=== PATIENT | male | born 1985 | race Caucasian/White ===

== ENCOUNTER 2022-05-03 12:54 | Emergency (ER) | payer SELFPAY ==
[~2022-05-03] VITALS: Ht 167.6 cm; Wt 81.8 kg
[2022-05-03] MEDS ORDERED: FLUO10CA24 PO (13:03)
[2022-05-03 13:29] LABS: BASOPHILS % (AUTO) 0.5 % (0.0-2.0); EOSINOPHILS % (AUTO) 1.4 % (1.0-6.0); HEMOGLOBIN 14.1 g/dL (13.5-17.5); LYMPHOCYTES # (AUTO) 1.3 K/uL (1.0-4.8); MEAN CORPUSCULAR HEMOGLOBIN 28.4 pg (26.0-34.0); MEAN CORPUSCULAR HGB CONC 33.6 G/dL (31.0-37.0); MEAN CORPUSCULAR VOLUME 85 fL (80-100); MONOCYTES # (AUTO) 0.8 K/uL (0.1-1.0); MONOCYTES % (AUTO) 10.6 % (2.0-9.0); NEUTROPHILS # (AUTO) 5.4 K/uL (1.8-7.7); NEUTROPHILS % (AUTO) 70.5 % (40.0-70.0); PLATELET COUNT (AUTO) 233 K/uL (150-450); RED BLOOD CELL COUNT(AUTO) 4.97 MIL/uL (4.50-5.90); RED CELL DISTRIBUTION WIDTH 13.7 % (11.5-14.5)
[2022-05-03] MEDS: SODIUM CHLORIDE 0.9% 1,000 ML IV ONE ×2 (13:29→14:34)
[2022-05-03] MEDS: ONDANSETRON HCL 4 MG/2 ML VIAL IVP ONE (13:30)
[2022-05-03 13:40] LABS: COVID AG,FIA SOURCE NASAL SWAB
[2022-05-03 13:40] LABS: CALCIUM, TOTAL 8.9 mg/dL (8.8-10.5); CREATININE 1.63 mg/dL (0.60-1.30); POTASSIUM 3.3 mmol/L (3.5-5.1)
[2022-05-03 13:46] LABS: ALBUMIN 4.1 g/dL (3.4-5.0); BILIRUBIN,TOTAL 1.1 mg/dL (0.1-1.0)
[2022-05-03 14:02] LABS: INFLUENZA TYPE A NEGATIVE FOR TYPE A (NEGATIVE); INFLUENZA TYPE B NEGATIVE FOR TYPE B (NEGATIVE)
[2022-05-03] MEDS: PB/HYOSCY/ATR/SCOP/LIDO/MAALOX 55 ML BOTTLE PO ONE (14:21)
[2022-05-03] MEDS ORDERED: IOHEXOL 300 MG/ML 100 ML VIAL ONE (14:33)
[2022-05-03] MEDS ORDERED: SODIUM CHLORIDE 0.9% 100 ML ONE (14:33)
[2022-05-03 14:34] LABS: APPEARANCE,URINE HAZY (CLEAR); GLUCOSE, URINE (UA) TRACE mg/dL (NEGATIVE); KETONES,URINE 80-100 mg/dL (NEGATIVE); LEUKOCYTE ESTERASE ,URINE NEGATIVE (NEGATIVE); NITRATE,URINE NEGATIVE (NEGATIVE); OCCULT BLOOD,URINE TRACE (NEGATIVE); PROTEIN,URINE >600,SEE CONFIRM mg/dL (NEGATIVE); SPECIFIC GRAVITIY, URINE 1.039 (1.003-1.030)
[2022-05-03] MEDS: ACETAMINOPHEN 500 MG TABLET PO ONE (14:34)
[2022-05-03] MEDS: KETOROLAC TROMETHAMINE 30 MG/ML VIAL IVP ONE (14:34)
[2022-05-03 14:41] LABS: BILIRUBIN,URINE MODERATE (NEGATIVE)
[2022-05-03 14:43] LABS: RBC,URINE 0-2 /HPF (0-2); SULFOSALICYLIC ACID,URINE 3+ (Negative)
[2022-05-03 14:44] LABS: BACTERIA,URINE Moderate /HPF (None Seen); FINE GRANULAR CASTS,URINE 0-2 /LPF (None Seen); HYALINE CASTS, URINE 0-2 /LPF (None Seen); WBC,URINE 0-2 /HPF (0-5)
[2022-05-03 15:12] VITALS: BP 139/77
[2022-05-03] MEDS ORDERED: ONDA-104 PO (15:35)
== END 2022-05-03 15:55 | disposition home or self-care (01) ==
LOC: EMS 12:58
DX: R10.9 Unspecified abdominal pain (principal); F17.210 Nicotine dependence, cigarettes, uncomplicated; Z88.0 Allergy status to penicillin; Z20.822 Contact with and (suspected) exposure to COVID-19
CPT/HCPCS: 99285; 74177; 96374; 76700; 96361; 96375; 87426; 80053; 81001; 83690; 85025; 87804; 36415; 87086; J1885; J2405; J7030; J7050; Q9967; 81002

== ENCOUNTER 2023-05-29 10:12 | Emergency (ER) | payer OTHER ==
[~2023-05-29] VITALS: Ht 167.6 cm; Wt 95.5 kg
[~2023-05-29 10:12] MED LIST: FLUO10CA24 PO; ONDA-104 PO
[2023-05-29 10:14] VITALS: BP 134/81; PULSE 84; RESP 16; TEMP 98
[2023-05-29] MEDS ORDERED: FLUO20CA36 PO (10:29)
[2023-05-29] MEDS ORDERED: IBUP-1554 PO (10:29)
[2023-05-29] MEDS ORDERED: ACET-66 PO (10:29)
[2023-05-29] MEDS ORDERED: ACETAMINOPHEN 500 MG TABLET PO ONE (10:30)
== END 2023-05-29 10:38 | disposition home or self-care (01) ==
LOC: EMS 10:15
DX: S29.012A Strain of muscle and tendon of back wall of thorax, initial encounter (principal); F32.A Depression, unspecified; F17.210 Nicotine dependence, cigarettes, uncomplicated; Z88.0 Allergy status to penicillin; X58.XXXA Exposure to other specified factors, initial encounter; Y93.89 Activity, other specified; Y92.89 Other specified places as the place of occurrence of the external cause; Y99.8 Other external cause status
CPT/HCPCS: 99283

== ENCOUNTER 2023-10-31 12:06 | Emergency (ER) | payer OTHER ==
[~2023-10-31] VITALS: Ht 167.6 cm; Wt 98.0 kg
[~2023-10-31 12:06] MED LIST changes: +ACET-66 PO; +FLUO20CA36 PO; +IBUP-1554 PO; -ONDA-104 PO
[2023-10-31 12:17] VITALS: BP 129/80; PULSE 74; RESP 16; TEMP 96.9
== END 2023-10-31 13:13 | disposition home or self-care (01) ==
LOC: EMS 12:06
DX: F32.A Depression, unspecified (principal); F17.210 Nicotine dependence, cigarettes, uncomplicated; Z88.0 Allergy status to penicillin
CPT/HCPCS: 99282; Z7502

== ENCOUNTER 2023-12-01 09:00 | Emergency (ER) | payer OTHER ==
[~2023-12-01] VITALS: Ht 167.6 cm; Wt 95.5 kg
[~2023-12-01 09:00] MED LIST changes: +FLUO-342 PO; -FLUO10CA24 PO
[2023-12-01 09:02] VITALS: TEMP 98.1
[2023-12-01 09:28] LABS: BASOPHILS % (AUTO) 0.5 % (0.0-2.0); HEMATOCRIT 42.9 % (41-53); HEMOGLOBIN 14.2 g/dL (13.5-17.5); LYMPHOCYTES # (AUTO) 2.1 K/uL (1.0-4.8); LYMPHOCYTES % (AUTO) 32.4 % (22.0-44.0); MEAN CORPUSCULAR HEMOGLOBIN 27.9 pg (26.0-34.0); MEAN CORPUSCULAR VOLUME 85 fL (80-100); MONOCYTES # (AUTO) 0.5 K/uL (0.1-1.0); MONOCYTES % (AUTO) 7.2 % (2.0-9.0); NEUTROPHILS # (AUTO) 3.7 K/uL (1.8-7.7); NEUTROPHILS % (AUTO) 57.9 % (40.0-70.0); PLATELET COUNT (AUTO) 212 K/uL (150-450); RED BLOOD CELL COUNT(AUTO) 5.07 MIL/uL (4.50-5.90); WHITE BLOOD COUNT (AUTO) 6.4 K/uL (4.5-11.0)
[2023-12-01 09:42] LABS: ANION GAP 9 mmol/L (8-16); CALCIUM, TOTAL 8.4 mg/dL (8.8-10.5); CARBON DIOXIDE 26 mmol/L (22-29); CHLORIDE 107 mmol/L (98-107); CREATININE 1.05 mg/dL (0.60-1.30); GLOMERULAR FILTR. RATE CALC > 60 mL/min (>60); GLUCOSE,RANDOM 113 mg/dL (70-110); POTASSIUM 4.4 mmol/L (3.5-5.1); SODIUM SERUM 142 mmol/L (136-145); UREA NITROGEN, BLOOD 19 mg/dL (7-18)
[2023-12-01 09:48] LABS: ALANINE AMINOTRANSFERASE 40 U/L (12-78); ALBUMIN 3.1 g/dL (3.4-5.0); ALKALINE PHOSPHATASE 49 U/L (46-116); ASPARTATE AMINOTRANSFERASE 18 U/L (15-37); BILIRUBIN,TOTAL 0.4 mg/dL (0.1-1.0); LIPASE 35 U/L (16-77); TOTAL PROTEIN, SERUM 6.3 g/dL (6.4-8.2)
[2023-12-01] MEDS: SODIUM CHLORIDE 0.9% 1,000 ML IV ONE (10:13)
[2023-12-01] MEDS: ONDANSETRON HCL 4 MG/2 ML VIAL IVP ONE (10:14)
[2023-12-01] MEDS: KETOROLAC TROMETHAMINE 30 MG/ML VIAL IVP ONE (10:14)
[2023-12-01 10:32] LABS: APPEARANCE,URINE CLEAR (CLEAR); BILIRUBIN,URINE NEGATIVE (NEGATIVE); COLOR,URINE YELLOW (YELLOW); GLUCOSE, URINE (UA) NEGATIVE (NEGATIVE); KETONES,URINE NEGATIVE (NEGATIVE); LEUKOCYTE ESTERASE ,URINE NEGATIVE (NEGATIVE); NITRATE,URINE NEGATIVE (NEGATIVE); OCCULT BLOOD,URINE NEGATIVE (NEGATIVE); PH,URINE 5.5 (5.0-8.0); PROTEIN,URINE NEGATIVE (NEGATIVE); SPECIFIC GRAVITIY, URINE 1.013 (1.003-1.030); UROBILINOGEN,URINE <=1.0 mg/dL (<=1.0)
[2023-12-01] MEDS ORDERED: IOHEXOL 350 MG/ML 100 ML VIAL ONE (10:38)
[2023-12-01] MEDS ORDERED: SODIUM CHLORIDE 0.9% 100 ML ONE (10:38)
[2023-12-01 11:32] VITALS: BP 128/82; PULSE 66; RESP 16
[2023-12-01] MEDS ORDERED: IBUP-1492 PO (11:47)
[2023-12-01] MEDS ORDERED: LIDO700A15 TP (11:47)
[2023-12-01] MEDS ORDERED: ACET-3385 PO (11:47)
== END 2023-12-01 12:26 | disposition home or self-care (01) ==
LOC: EMS 09:00
DX: R10.32 Left lower quadrant pain (principal); F32.A Depression, unspecified; F17.210 Nicotine dependence, cigarettes, uncomplicated; Z88.0 Allergy status to penicillin
CPT/HCPCS: 99285; 74177; 96374; 96361; 96375; 80053; 81003; 83690; 85025; 36415; J1885; J2405; Q9967; J7030; J7050

== ENCOUNTER 2024-04-02 11:54 | Emergency (ER) | payer OTHER ==
[~2024-04-02] VITALS: Ht 167.6 cm; Wt 100.0 kg
[~2024-04-02 11:54] MED LIST changes: +ACET-3385 PO; -ACET-66 PO; -FLUO-342 PO; +FLUO-418 PO; -FLUO20CA36 PO; +IBUP-1492 PO; -IBUP-1554 PO; +LIDO700A15 TP
[2024-04-02 12:02] VITALS: TEMP 98
[2024-04-02] MEDS: FLUoxetine HCL 20 MG CAPSULE PO ONE (13:04)
[2024-04-02] MEDS ORDERED: FLUO-418 PO (13:08)
[2024-04-02 13:14] VITALS: BP 122/86; PULSE 76; RESP 18; O2SAT 98
== END 2024-04-02 13:19 | disposition home or self-care (01) ==
LOC: EMS 11:54
DX: F32.A Depression, unspecified (principal); F17.210 Nicotine dependence, cigarettes, uncomplicated; Z88.0 Allergy status to penicillin; Z76.0 Encounter for issue of repeat prescription
CPT/HCPCS: 99283

== ENCOUNTER 2025-07-15 20:02 | Emergency (ER) | payer BC, OTHER ==
[~2025-07-15 20:02] MED LIST changes: +LIDO-57 TP; -LIDO700A15 TP
== END 2025-07-15 21:00 | disposition left against medical advice (07) ==
LOC: EMS 20:02
DX: Z53.21 Procedure and treatment not carried out due to patient leaving prior to being seen by health care provider (principal)